=== PATIENT | male | born 1975 | race Caucasian/White ===

== ENCOUNTER 2017-08-14 13:24 | Inpatient (IN) | payer OTHER ==
--- NOTE | 2017-08-14 14:05 | ED ---
General Adult HPI - General Chief complaint: Skin/Abscess/Foreign Body Stated complaint: Hand Pain Time Seen by Provider: 08/14/17 14:05 Source: patient Mode of arrival: ambulatory Limitations: no limitations - History of Present Illness Initial comments: Patient is a 42-year-old right-hand dominant male who presents to the emergency department for evaluation of pain, redness and purulent drainage from his left fifth finger. Patient reports he has a history of boils in the past which is been treated with oral antibiotics. He states that on Saturday the temperature 29th he noticed redness of his left fifth digit, since that time his finger has become progressively more swollen, the wound has opened and is now draining purulent fluid. Patient states that his fingers become enlarged and red, he now cannot straighten the finger due to pain. In addition he has noticed similar boils on his right forearm developed over the past 2-3 days. Patient reports both him and his daughter have a history of recurrent skin infections, he's not sure if they are MRSA, he is not sure what antibiotics he is taking in the past for treatment. 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 He said his tetanus is up-to-date. She denies any other symptoms including fevers, chills, nausea, vomiting, chest pain, shortness of breath. Patient states he has never required hospitalization for his skin infections in the past. - Related Data Home Medications Medication Instructions Recorded Confirmed Ibuprofen [Motrin] 800 mg PO BID PRN 08/14/17 08/14/17 Allergies Allergy/AdvReac Type Severity Reaction Status Date / Time No Known Allergies Allergy Verified 08/14/17 14:17 Review of Systems ROS Statement: Those systems with pertinent positive or pertinent negative responses have been documented in the HPI. ROS Other: All systems not noted in ROS Statement are negative. Constitutional: Denies: fever, chills Respiratory: Denies: dyspnea Cardiovascular: Denies: chest pain, palpitations Endocrine: Denies: fatigue Gastrointestinal: Denies: abdominal pain, nausea, vomiting Genitourinary: Denies: dysuria Musculoskeletal: Denies: back pain Skin: Reports: lesions, change in color Neurological: Denies: headache, weakness Hematological/Lymphatic: Denies: easy bleeding, easy bruising Past Medical History Past Medical History: No Reported History History of Any Multi-Drug Resistant Organisms: MRSA Date of last positivie culture/infection: 07/17/2015 MDRO Source:: ARM Past Surgical History: Adenoidectomy, Ear Surgery, Tonsillectomy Past Psychological History: No Psychological Hx Reported Smoking Status: Current every day smoker Past Alcohol Use History: Occasional Past Drug Use History: None Reported General Exam Limitations: no limitations General appearance: alert, in no apparent distress Head exam: Present: atraumatic, normocephalic Eye exam: Present: normal appearance, PERRL ENT exam: Present: other (Poor dentition) Neck exam: Present: normal inspection Respiratory exam: Present: normal lung sounds bilaterally. Absent: respiratory distress Cardiovascular Exam: Present: regular rate, normal rhythm. Absent: tachycardia , irregular rhythm GI/Abdominal exam: Present: soft. Absent: distended, tenderness Rectal exam: Present: deferred Left Shoulder Exam: Present: normal inspection Upper Arm exam: Present: normal inspection Elbow exam: Present: normal inspection Forearm Wrist exam: Present: normal inspection Hand Wrist exam: Present: tenderness, swelling, ecchymosis, erythema. Absent: normal inspection, full ROM, laceration, deformity, dislocation, amputation Hand L/R Back: 1 - swelling, purulent drainage, decreased ROM, pain with passive extension Neuro motor exam: Present: wrist extension intact Vascular: Present: normal capillary refill. Absent: vascular compromise, Pallo Back exam: Present: normal inspection Neurological exam: Present: alert, oriented X3 Psychiatric exam: Present: normal affect Skin exam: Present: other (as noted in hand exam) Course Vital Signs 08/14/17 13:34 Temperature 98.8 F Pulse Rate 94 Respiratory 20 Rate Blood Pressure 119/78 O2 Sat by Pulse 99 Oximetry - Reevaluation(s) Reevaluation #1: She was updated on plan for admission, now requesting something for pain in his hand. 4 mg of morphine were ordered. 08/14/17 15:06 Medical Decision Making - Medical Decision Making Patient was seen and evaluated vital signs reviewed - tachycardia with a heart rate 94 no other Sirs criteria Patient's history and physical exam are concerning for flexor tenosynovitis, patient has 3 out of 4 [place] signs for flexor tenosynovitis including finger held in flexion, fusiform swelling and pain with passive extension Labs and x-ray were ordered Vancomycin and Rocephin were ordered for antibiotics Orthopedic surgery was consult to evaluate the patient for infection of the hand possibly requiring surgical debridement Orthopedic surgery PA at bedside evaluated the patient, staff the patient with attending on-call who accepts the admission. They agree with workup as ordered and plan for IV Rocephin and vancomycin, they request a consult to Dr. Beltran infectious disease. Consult and admission orders were placed Patient was updated on plan, is agreeable Disposition Clinical Impression: Abscess of hand including fingers Disposition: ADMITTED IP TO THIS [facility] Condition: Good Referrals: None,Stated [Primary Care Provider] - 1-2 days Time of Disposition: 15:09
[2017-08-14] MEDS ORDERED: VANCOMYCIN IV PER PHARMACY 1 EACH MISC MISCELLANE PRN (14:20)
[2017-08-14] MEDS ORDERED: VANCOMYCIN 1,500 MG in SODIUM CHLORIDE 0.9% 250 ML IVPB STA (14:29)
[2017-08-14] MEDS: SODIUM CHLORIDE 0.9% 500 ML IV SCH (14:43)
--- NOTE | 2017-08-14 14:59 | XR ---
Left knee HISTORY: Pain and swelling left fifth digit 3 views of the left hand No comparisons Bone mineralization, joint spaces and alignment are maintained. Soft tissue swelling is noted at the fifth digit of the left hand. No periosteal reaction to suggest osteomyelitis. IMPRESSION: Correlate for cellulitis.
[2017-08-14] MEDS ORDERED: MORPHINE SULFATE 4 MG/ML SYRINGE IV ONE (15:01)
[2017-08-14] MEDS ORDERED: NALOXONE 0.4 MG/ML 1 ML VIAL IV PRN (15:02)
[2017-08-14] MEDS ORDERED: ACETAMINOPHEN TAB 325 MG TAB PO PRN (15:02)
[2017-08-14 15:06] LABS: Basophils % (A) 0 %; CH 31.5; CHCM 34.2; Eosinophils # (A) 0.2 k/uL (0-0.7); Eosinophils % (A) 2 %; HDW 2.52; HGB 15.6 gm/dL (13.0-17.5); Luc # (Auto) 0.21; Luc % (Auto) 2; Lymphocytes # (A) 1.2 k/uL (1.0-4.8); Lymphocytes % (A) 13 %; MCHC 34.6 g/dL (31.0-37.0); MCV 92.4 fL (80.0-100.0); Mean Platelet Volume 7.4; Monocytes # (A) 0.5 k/uL (0-1.0); Monocytes % (A) 6 %; Neutrophils # (A) 6.8 k/uL (1.3-7.7); Neutrophils % (A) 77 %; RBC 4.87 m/uL (4.30-5.90); RDW 12.9 % (11.5-15.5); WBC 8.9 k/uL (3.8-10.6); WBC (Perox) 8.85
[2017-08-14 15:15] LABS: Partial Thromboplastin Time 26.1 sec (22.0-30.0); Prothrombin Time 10.2 sec (9.0-12.0)
[2017-08-14 15:21] LABS: ALT 29 U/L (21-72); AST 21 U/L (17-59); Alkaline Phosphatase 68 U/L (38-126); Anion Gap 9 mmol/L; Blood Urea Nitrogen 6 mg/dL (9-20); Calcium 9.4 mg/dL (8.4-10.2); Carbon Dioxide 25 mmol/L (22-30); Chloride 106 mmol/L (98-107); Glucose 86 mg/dL (74-99); Non-African American GFR(MDRD) >60 (>60 ml/min/1.73 sqM); Potassium 3.9 mmol/L (3.5-5.1); Sodium 140 mmol/L (137-145); Total Bilirubin 0.4 mg/dL (0.2-1.3); Total Protein 6.6 g/dL (6.3-8.2)
[2017-08-14] MEDS: HYDROcodone/APAP 5-325MG 1 EACH TAB PO PRN ×2 (17:03→21:30)
[2017-08-14] MEDS: MORPHINE SULFATE 4 MG/ML SYRINGE IV PRN ×2 (17:04→21:32)
[2017-08-14] MEDS: NICOTINE 21MG/24HR PATCH TRANSDERM SCH (17:25)
[2017-08-14] MEDS ORDERED: HYDROcodone/APAP 7.5-325MG 1 EACH TAB PO PRN (22:16)
[2017-08-14] MEDS: VANCOMYCIN 1,500 MG in SODIUM CHLORIDE 0.9% 250 ML IVPB SCH (23:18)
[2017-08-15] MEDS: HYDROcodone/APAP 7.5-325MG 1 EACH TAB PO PRN ×5 (02:21→21:34)
[2017-08-15] MEDS: MORPHINE SULFATE 4 MG/ML SYRINGE IV PRN ×5 (03:31→23:55)
[2017-08-15] MEDS: VANCOMYCIN 1,500 MG in SODIUM CHLORIDE 0.9% 250 ML IVPB SCH ×2 (07:50→16:18)
--- NOTE | 2017-08-15 07:55 | P.HPOR ---
History of Present Illness H&P Date: 08/14/17 Chief Complaint: Left hand infection This is a 42-year-old male who presented to the emergency department today with infection to the left hand. He states that he has history of "boils" in the past which have been treated through the ER with oral antibiotics. He does not have a primary care physician. 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 He states that he has multiple abscessed areas on his skin at this time. He most recently developed an area of redness and swelling to the dorsum of the left hand which is known draining purulent material. He denies fever or chills at home. He presents emergency department today with severe left hand pain. We have been consulted for orthopedic evaluation. Past Medical History Past Medical History: No Reported History History of Any Multi-Drug Resistant Organisms: MRSA Date of last positivie culture/infection: 07/17/2015 MDRO Source:: ARM Past Surgical History: Adenoidectomy, Ear Surgery, Tonsillectomy Past Psychological History: No Psychological Hx Reported Smoking Status: Current every day smoker Past Alcohol Use History: Occasional Past Drug Use History: None Reported Medications and Allergies Home Medications Medication Instructions Recorded Confirmed Type Ibuprofen [Motrin] 800 mg PO BID PRN 08/14/17 08/14/17 History Allergies Allergy/AdvReac Type Severity Reaction Status Date / Time No Known Allergies Allergy Verified 08/14/17 14:17 Physical Examination This is a 42-year-old male in no acute distress. He is alert and oriented 3. His significant other is present at bedside. Exam of the upper extremities reveals multiple small areas of redness about the arms. There is a pustule to the right forearm with surrounding erythema. There is significant swelling and erythema noted to the dorsum of the left hand about the base of the fifth finger which extends into the webspace between the fourth and fifth fingers. There is purulent drainage noted from the area. He has limited range of motion secondary to pain and swelling. He has normal sensation to the finger. No other areas of redness to the hands noted. The remainder of his musculoskeletal exam is unremarkable. Results - Labs Labs: Abnormal Lab Results - Last 24 Hours (Table) 08/14/17 Range/Units 14:40 BUN 6 L (9-20) mg/dL H & H 08/14/17 Range/Units 14:40 Hgb 15.6 (13.0-17.5) gm/dL Hct 45.0 (39.0-53.0) % Coagulation 08/14/17 Range/Units 14:40 INR 1.0 (<1.2) Result Diagrams: 08/14/17 14:40 08/14/17 14:40 Assessment and Plan (1) Abscess of hand including fingers Status: Acute (2) Abscess and cellulitis Status: Acute Plan: The clinical findings are discussed with the patient. He is admitted for IV antibiotics and infectious disease evaluation. We will have him do warm soaks with soapy water. We'll plan I&D of the hand tomorrow. Dr. Beltran has been consulted for infectious disease evaluation and antibiotic recommendations.
--- NOTE | 2017-08-15 09:00 | P.PN ---
Subjective Progress Note Date: 08/15/17 Principal diagnosis: Abscess left hand. This is a 42-year-old gentleman admitted through the emergency department on 02/2017. He has multiple pustules the about his upper extremities. He has a purulent abscess to the dorsum of his left hand about the base of the fifth finger. We're waiting consult with Dr. Beltran. We are planning or tomorrow for incision and drainage. He is currently on IV antibiotics and is having warm soaks twice a day as well as use the K pad. Objective - Vital Signs Vital signs: Vital Signs Temp 96.7 F L 08/15/17 07:00 Pulse 66 08/15/17 07:00 Resp 20 08/15/17 07:00 BP 115/65 08/15/17 07:00 Pulse Ox 95 08/15/17 07:00 Intake & Output 08/14/17 08/15/17 08/15/17 18:59 06:59 18:59 Weight 77.111 kg Other: Voiding Method Toilet # Voids 2 - Exam This is a 42-year-old male in no acute distress. He is alert and oriented 3. Exam of the left hand reveals that his wound continues to drain. He continues to have redness about the ulnar aspect of the hand and to the fourth and fifth fingers. He has limited range of motion of the fifth finger secondary to pain. Neurovascular status the upper extremity is intact. - Labs CBC & Chem 7: 08/14/17 14:40 08/14/17 14:40 Labs: Abnormal Lab Results - Last 24 Hours (Table) 08/14/17 Range/Units 14:40 BUN 6 L (9-20) mg/dL Assessment and Plan (1) Abscess of hand including fingers Status: Acute (2) Abscess and cellulitis Status: Acute Plan: The clinical findings are discussed with the patient. He is admitted for IV antibiotics and infectious disease evaluation. We will have him do warm soaks with soapy water. We'll plan I&D of the hand tomorrow. Dr. Beltran has been consulted for infectious disease evaluation and antibiotic recommendations.
[2017-08-15] MEDS: KETOROLAC 30 MG/ML 1 ML VIAL IVP SCH ×2 (13:35→18:20)
[2017-08-15] MEDS: MULTIVITAMINS, THERA 1 EACH TAB PO SCH (13:37)
[2017-08-15] MEDS: LACTATED RINGERS 1,000 ML IV SCH (16:17)
[2017-08-15] MEDS: ceFAZolin 2 GM in SODIUM CHLORIDE 0.9% 100 ML IVPB SCH ×2 (18:20→22:58)
[2017-08-15] MEDS: NICOTINE 21MG/24HR PATCH TRANSDERM SCH (18:25)
--- NOTE | 2017-08-15 21:20 | P.CONS ---
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 Who is a difficulty with boils on his skin in the past. She developed a boil on his left hand. Despite some local care it did not improve. He also noticed one in his right arm there is also been giving him some swelling drainage and pain. The swelling and pain to the left hand became unbearable and he presented to the emergency center and has been admitted. He has been seen by orthopedic surgery and his plans for an incision and drainage of the abscess on the left hand. Infectious diseases consultation for antibiotic therapy. This pleasant 48-year-old gentleman with history of multiple lesions on his skin over time. 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 He believes a low-grade fever but no severe chills or rigors. He's had no recent hospitalizations or interventions. Review of Systems 42-year-old male who is in significant discomfort to his left hand. HEENT:Denies headache or acute visual change. Denies sinus or mouth discomforts. Denies neck stiffness or pain. Denies significant oral cavity pain. Denies difficulty on swallowing. Lungs: Denies significant shortness of breath, cough, sputum production, or hemoptysis. Cardiovascular: Denies significant shortness of breath, chest pain, chest wall pain, orthopnea, dyspnea on exertion, syncope Gastrointestinal:Denies nausea, vomiting, diarrhea, constipation, hematemesis, melena, hematochezia. No no significant change of bowel habit noticed. Musculoskeletal: denies significant myalgias or arthralgias. No new joint swelling. Denies new back pain. As per the HPI left hand Skin: As per the HPI Neuro: Denies headache or visual change. Denies any new onset weakness or difficulty with ambulation. Denies falls or seizures. Psychiatric:Denies anxiety or depression. Endocrine: Denies significant fatigue, denies significant weight loss or weight gain. Past Medical History Past Medical History: No Reported History History of Any Multi-Drug Resistant Organisms: MRSA Year Discovered:: 07/17/2015 MDRO Source:: ARM Past Surgical History: Adenoidectomy, Ear Surgery, Tonsillectomy Past Psychological History: No Psychological Hx Reported Additional Psychological History / Comment(s): but has a five-year relationship. 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 No international travel. 2 dogs and 2 cats at home. Positive tobacco use. History of alcoholism but not current. Denies other recreational drug use Smoking Status: Current every day smoker Past Alcohol Use History: Occasional Past Drug Use History: None Reported Medications and Allergies Home Medications and Allergies Comment(s): Current Medications Acetaminophen (Tylenol Tab) 650 mg PO Q6HR PRN PRN Reason: Mild Pain or Fever > 100.5 Hydrocodone Bitart/Acetaminophen ([place] 7.5-325) 2 each PO Q4H PRN PRN Reason: Moderate Pain Last Admin: 08/15/17 16:23 Dose: 2 each Hydrocodone Bitart/Acetaminophen ([place] 7.5-325) 1 each PO Q4H PRN PRN Reason: Mild Pain Vancomycin HCl 1,500 mg/ (Sodium Chloride) 250 mls @ 125 mls/hr IVPB Q8HR [place] Last Admin: 08/15/17 16:18 Dose: 125 mls/hr Cefazolin Sodium 2 gm/ Sodium (Chloride) 100 mls @ 100 mls/hr IVPB Q8HR [place] Last Admin: 08/15/17 18:20 Dose: 100 mls/hr Lactated Ringer's (Lactated Ringers) 1,000 mls @ 20 mls/hr IV .Q24H [place] Last Admin: 08/15/17 16:17 Dose: Not Given Ketorolac Tromethamine (Toradol) 30 mg IVP Q6HR [place] Stop: 08/19/17 12:04 Last Admin: 08/15/17 18:20 Dose: 30 mg Miscellaneous Information (Vancomycin Trough Due) 0 each MISCELLANE DIRECTED ONE Stop: 08/16/17 07:01 Morphine Sulfate (Morphine Sulfate (Inj)) 4 mg IV Q4HR PRN PRN Reason: Severe Pain Last Admin: 08/15/17 18:21 Dose: 4 mg Multivitamins (Theragran) 1 each PO DAILY@1200 [place] Last Admin: 08/15/17 13:37 Dose: 1 each Naloxone HCl (Narcan) 0.2 mg IV Q2M PRN PRN Reason: Opioid Reversal Nicotine (Habitrol 21mg/24hr Patch) 1 patch TRANSDERM Q24H [place] Last Admin: 08/15/17 18:25 Dose: 1 patch Home Medications Medication Instructions Recorded Confirmed Type Ibuprofen [Motrin] 800 mg PO BID PRN 08/14/17 08/14/17 History Allergies Allergy/AdvReac Type Severity Reaction Status Date / Time No Known Allergies Allergy Verified 08/14/17 14:17 Physical Exam Vitals: Vital Signs Temp Pulse Resp BP Pulse Ox 08/15/17 15:00 97.1 F L 96 16 120/74 95 08/15/17 07:00 96.7 F L 66 20 115/65 95 08/14/17 23:00 99.4 F 72 19 112/64 96 Intake and Output 08/15/17 08/15/17 08/15/17 06:59 14:59 22:59 Other: # Voids 2 2 # Bowel Movements 1 Pleasant 42-year-old male who is uncomfortable HEENT: Anicteric conjunctiva are pink and moist nasal mucosa grossly intact without significant lesions, there is no thrush. Dentition is poor for age Neck: The neck is supple without significant lymphadenopathy or thyromegaly. Lungs: Symmetrical air entry is noted, expiratory wheezes are scattered but no bronchial sounds are noted. No dullness or egophony. Heart: Regular rate and rhythm with an audible S1-S2, no S3 no S4. There is no significant murmur click or rub, PMI was nondisplaced. Abdomen: Positive bowel sounds soft and nontender without palpable masses or organomegaly. There was no guarding or rebound. Extremities: The right upper extremity shows evidence on the forearm of a small 2 x 2 area of a pustule that is drained with some surrounding erythema and induration. It is mildly tender. The left hand reveals evidence of the extensive abscess at the base of the fifth finger. There is grossly purulent material is easily expressible. It is very tender to touch and motion. There is surrounding erythema. There is erythema onto the hand but does not track out of the forearm. There is no epitrochlear or axillary lymphadenopathy. No other abnormal lymph nodes are noted The lower extremities are free from significant edema. The peripheral pulses were 2+ and symmetric. Neuro: Awake alert oriented to person place and time. There are no acute new gross focal sensory motor deficits. Results CBC & Chem 7: 08/14/17 14:40 08/14/17 14:40 Labs: Microbiology - Last 24 Hours (Table) 08/14/17 14:40 Blood Culture - Preliminary Blood No Growth after 24 hours Laboratory Results WBC 8.9 k/uL (3.8-10.6) 08/14/17 14:40 RBC 4.87 m/uL (4.30-5.90) 08/14/17 14:40 Hgb 15.6 gm/dL (13.0-17.5) 08/14/17 14:40 Hct 45.0 % (39.0-53.0) 08/14/17 14:40 MCV 92.4 fL (80.0-100.0) 08/14/17 14:40 MCH 32.0 pg (25.0-35.0) 08/14/17 14:40 MCHC 34.6 g/dL (31.0-37.0) 08/14/17 14:40 RDW 12.9 % (11.5-15.5) 08/14/17 14:40 Plt Count 208 k/uL (150-450) 08/14/17 14:40 Neutrophils % 77 % 08/14/17 14:40 Lymphocytes % 13 % 08/14/17 14:40 Monocytes % 6 % 08/14/17 14:40 Eosinophils % 2 % 08/14/17 14:40 Basophils % 0 % 08/14/17 14:40 Neutrophils # 6.8 k/uL (1.3-7.7) 08/14/17 14:40 Lymphocytes # 1.2 k/uL (1.0-4.8) 08/14/17 14:40 Monocytes # 0.5 k/uL (0-1.0) 08/14/17 14:40 Eosinophils # 0.2 k/uL (0-0.7) 08/14/17 14:40 Basophils # 0.0 k/uL (0-0.2) 08/14/17 14:40 PT 10.2 sec (9.0-12.0) 08/14/17 14:40 INR 1.0 (<1.2) 08/14/17 14:40 APTT 26.1 sec (22.0-30.0) 08/14/17 14:40 Sodium 140 mmol/L (137-145) 08/14/17 14:40 Potassium 3.9 mmol/L (3.5-5.1) 08/14/17 14:40 Chloride 106 mmol/L (98-107) 08/14/17 14:40 Carbon Dioxide 25 mmol/L (22-30) 08/14/17 14:40 Anion Gap 9 mmol/L 08/14/17 14:40 BUN 6 mg/dL (9-20) L 08/14/17 14:40 Creatinine 0.75 mg/dL (0.66-1.25) 08/14/17 14:40 Est GFR (MDRD) Af Amer >60 (>60 ml/min/1.73 sqM) 08/14/17 14:40 Est GFR (MDRD) Non-Af >60 (>60 ml/min/1.73 sqM) 08/14/17 14:40 Glucose 86 mg/dL (74-99) 08/14/17 14:40 Plasma Lactic Acid Alexander 1.1 mmol/L (0.7-2.0) 08/14/17 14:40 Calcium 9.4 mg/dL (8.4-10.2) 08/14/17 14:40 Total Bilirubin 0.4 mg/dL (0.2-1.3) 08/14/17 14:40 AST 21 U/L (17-59) 08/14/17 14:40 ALT 29 U/L (21-72) 08/14/17 14:40 Alkaline Phosphatase 68 U/L (38-126) 08/14/17 14:40 Total Protein 6.6 g/dL (6.3-8.2) 08/14/17 14:40 Albumin 3.8 g/dL (3.5-5.0) 08/14/17 14:40 Microbiology 08/14/17 14:40 Blood Blood Culture - Preliminary No Growth after 24 hours Assessment and Plan (1) Abscess of hand including fingers Narrative/Plan: 42-year-old male presents to hospital with worsening pain to his left hand. The presentation evidence of significant abscess of the fifth finger left hand. Has been seen by orthopedics nurse plan for incision and drainage soon. Pain control seems to be adequate at times. Manipulation of the hand cause severe pain. Dressing with opticel is applied and elevation of the hand is suggested. Opticell also placed of the abscess on of the right arm. Antimicrobial therapy with vancomycin is initiated cefazolin is also added until we have further culture results but does have a known history of MRSA in the past. Information about MRSA infection is given. We discussed several maneuvers once he is home to help prevent further abscess, this includes maneuvers such as a bleach bath she's not done up till now. Multivitamin with zinc is added to help his nutritional status. His albumin level that was good. Surgical findings we'll determine the need for outpatient intravenous antibiotic therapy especially if there is tendosynovitis which is suspected at this time. Status: Acute (2) MRSA infection Status: Acute (3) Smoker Status: Acute
[2017-08-16] MEDS: KETOROLAC 30 MG/ML 1 ML VIAL IVP SCH ×5 (00:32→23:22)
[2017-08-16] MEDS: VANCOMYCIN 1,500 MG in SODIUM CHLORIDE 0.9% 250 ML IVPB SCH ×3 (00:32→17:18)
[2017-08-16] MEDS: HYDROcodone/APAP 7.5-325MG 1 EACH TAB PO PRN ×4 (06:27→23:29)
[2017-08-16] MEDS: MORPHINE SULFATE 4 MG/ML SYRINGE IV PRN ×3 (06:54→20:28)
[2017-08-16] MEDS ORDERED: VANCOMYCIN TROUGH DUE 1 EACH MISC MISCELLANE ONE (07:00)
[2017-08-16] MEDS: ceFAZolin 2 GM in SODIUM CHLORIDE 0.9% 100 ML IVPB SCH ×3 (07:48→23:22)
[2017-08-16] MEDS ORDERED: IV FLUID CONTINUATION 1,000 ML IV ONE (09:00)
[2017-08-16] MEDS ORDERED: DEXAMETHASONE SOD PHOSPHATE 10 MG/ML 1 ML VIAL IV ONE (09:16)
[2017-08-16] MEDS ORDERED: ONDANSETRON 4 MG/2 ML VIAL IVP ONE ×2 (09:16→11:21)
[2017-08-16] MEDS ORDERED: fentaNYL (PF) 50 MCG/ML 2 ML AMP ONE (09:25)
[2017-08-16] MEDS ORDERED: MEPERIDINE 50 MG/ML SYRINGE ONE (09:25)
[2017-08-16] MEDS ORDERED: MIDAZOLAM 2 MG/2 ML VIAL ONE (09:25)
[2017-08-16] MEDS ORDERED: PROPOFOL 10 MG/ML 20 ML VIAL IV ONE (09:25)
[2017-08-16] MEDS ORDERED: LIDOCAINE 1% INJ 10MG/ML (20 ML MDV) ONE (09:25)
[2017-08-16] MEDS ORDERED: ePHEDrine SULFATE/0.9% NACL/PF 50 MG/5 ML SYRINGE IV ONE (09:25)
--- NOTE | 2017-08-16 09:43 | P.PN ---
Progress Note - Text Progress Note Date: 08/16/17 Mr. Sapp is presenting to the operating room this morning for debridement of his left hand abscess. He also wishes to bring to our attention the presence of 2 other superficial abscesses on his contralateral forearm, one proximal and one distal. These appear to be superficial abscesses with a slightly raised appearance but no evidence of significant fluctuance. The proximal 1 is on the medial aspect of the proximal forearm and measures approximately 3 cm with respect to the amount of redness around that area. There is no definite fluid collection palpable and there is an opening there which the patient states is freely draining pus. Currently there is no expressible drainage. The other one on the distal aspect of the volar surface of the forearm measures approximately 2.5 cm in size and has a more focal area approximately 5 mm in size which appears to be a quantity of pus coming to ahead. Again there is no evidence of definite fluctuance in the area and no expressible drainage. He is acutely tender on both of these areas however. I have added to the consent form possible irrigation and debridement of these superficial abscesses on his right forearm as well and he wishes to proceed with that. I remained of the consent form to reflect these changes, and he has re-signed the consent form. We went over pertinent risks and potential, locations as being similar to the left hand debridement procedure.
[2017-08-16] MEDS ORDERED: LACTATED RINGERS 1,000 ML IV ONE (10:09)
[2017-08-16] MEDS ORDERED: HYDROmorphone 1 MG/ML 1 ML SYRINGE IVP ONE ×4 (11:16→11:36)
[2017-08-16] MEDS ORDERED: KETOROLAC 30 MG/ML 1 ML VIAL IVP ONE (11:30)
--- NOTE | 2017-08-16 12:24 | P.OP ---
Date of Procedure: 08/16/17 Procedure(s) Performed: left hand I&D of dorsal abcess of 5th MCP area right forearm superficial abcess I&D x2 (proximal and distal volar surface) all wounds packed with iodoform wet-to-dry PREOPERATIVE DIAGNOSES: 1. Left hand dorsal fifth MCP area superficial abscess 2. Right forearm superficial cellulitis/superficial abscess 2 (1 proximal, 1 distal) POSTOPERATIVE DIAGNOSES: 1. Left hand dorsal fifth MCP area superficial abscess 2. Right forearm superficial cellulitis/superficial abscess 2 (1 proximal, 1 distal) PROCEDURES PERFORMED: 1. Left hand fifth MCP area abscess incision and drainage 2. Right forearm superficial cellulitis/superficial abscess incision and drainage 2 3. Packing of wounds with moistened iodoform gauze ANESTHESIA: Gen. POINT OF CARE SPECIALIST: None COMPLICATIONS: None ESTIMATED BLOOD LOSS: Less than 20 mL. DISPOSITION: To post-anesthesia care unit INDICATIONS: Zach is a 42-year-old male with a history of abscesses involving the left hand and right forearm. He presents to the operating room for incision and drainage. Consent has been obtained after discussion of the risks of incision and drainage of this abscess as being inclusive of, but not limited to: Bleeding, further infection, scarring, discomfort, blood vessel and/or nerve damage, compartment syndrome, failure to relieve symptoms, persistence or recurrence and/or worsening of symptoms or problems, need for further surgery, blood clot, pulmonary embolism, , anesthesia risks, and other risks. PROCEDURE: After appropriate consent was obtained, the patient was taken to the operating room placed in the supine position. Anesthesia was initiated, and after confirmation of adequate anesthesia, the patient was carefully positioned. Care was taken to make sure that all pressure points were adequately padded. Prepping and draping were completed in the usual aseptic fashion using ChloraPrep. Timeout was called, confirming patient identity, side , and procedure. Incision approximately 1.5 inches in size was created along the abscess, which was located on the dorsal aspect of the fifth MCP area of the left hand. Incision was carried down just through skin and into subcu tissues where was noted that there was gross pus. The gross pus was removed by extending the incision and gently spreading down to the abscess cavity. The abscess cavity was probed with manual palpation until all areas of the abscess cavity were interrogated. Cultures were taken. There did not appear to be any extension of the abscess cavity into the joint. Soft tissue tension visibly and palpably improved after drainage of the abscess. Pulsatile lavage was used, delivering one L of saline within the abscess cavity. During this time, small amount of Hibiclens solution was also applied to the wound surface, allowed to soak into the tissues for 1 minute, and then rinsed off using the pulsatile lavage. The wound was then gently packed with moistened quarter-inch iodoform gauze followed by a dry dressing. In similar fashion, the right forearm abscesses were similarly treated with smaller incisions, approximately 1 cm in size. In these areas however, no gross pus was noted. Spreading with a blunt instrument down to muscular fascia was performed. There did not appear to be any involvement of the muscular fascia. Irrigation was performed with normal saline. Both these areas were packed with a very small quantity of moistened iodoform gauze. Hemostasis was obtained during the case using electrocautery and pressure. Sterile dressing was then applied with Amarjit. Patient tolerated the procedure well and taken to recovery room in stable condition. Sponge counts were correct.
[2017-08-16] MEDS: MULTIVITAMINS, THERA 1 EACH TAB PO SCH (12:25)
[2017-08-16] MEDS: NICOTINE 21MG/24HR PATCH TRANSDERM SCH (12:28)
[2017-08-16] MEDS: LACTATED RINGERS 1,000 ML IV SCH (14:53)
--- NOTE | 2017-08-16 23:14 | P.PN ---
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 Who is a difficulty with boils on his skin in the past. She developed a boil on his left hand. Despite some local care it did not improve. He also noticed one in his right arm there is also been giving him some swelling drainage and pain. The swelling and pain to the left hand became unbearable and he presented to the emergency center and has been admitted. He has been seen by orthopedic surgery and his plans for an incision and drainage of the abscess on the left hand. Infectious diseases consultation for antibiotic therapy. This pleasant 48-year-old gentleman with history of multiple lesions on his skin over time. 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 He believes a low-grade fever but no severe chills or rigors. He's had no recent hospitalizations or interventions. The patient has not been taking the operating room when incision and drainages occurred to his left hand and right forearm. Surgical notes are reviewed. Other than significant pain the patient relates that he is stable today. Objective - Vital Signs Vital signs: Vital Signs Temp 97.4 F L 08/16/17 23:00 Pulse 62 08/16/17 23:00 Resp 18 08/16/17 23:00 BP 114/78 08/16/17 23:00 Pulse Ox 94 L 08/16/17 23:00 Intake & Output 08/16/17 08/16/17 08/17/17 06:59 18:59 06:59 Intake Total 525 600 Output Total 20 Balance 505 600 Intake: IV 525 Oral 600 Output: Estimated Blood Loss 20 Other: Voiding Method Toilet Toilet # Voids 1 2 2 - Exam Pleasant 42-year-old male who is uncomfortable HEENT: Anicteric conjunctiva are pink and moist nasal mucosa grossly intact without significant lesions, there is no thrush. Dentition is poor for age Neck: The neck is supple without significant lymphadenopathy or thyromegaly. Lungs: Symmetrical air entry is noted, expiratory wheezes are scattered but no bronchial sounds are noted. No dullness or egophony. Heart: Regular rate and rhythm with an audible S1-S2, no S3 no S4. There is no significant murmur click or rub, PMI was nondisplaced. Abdomen: Positive bowel sounds soft and nontender without palpable masses or organomegaly. There was no guarding or rebound. Extremities: The left hand and right forearm have the recent postoperative dressings in place not removed. There is surrounding erythema. There is erythema onto the hand but does not track out of the forearm. There is no epitrochlear or axillary lymphadenopathy. No other abnormal lymph nodes are noted The lower extremities are free from significant edema. The peripheral pulses were 2+ and symmetric. Neuro: Awake alert oriented to person place and time. There are no acute new gross focal sensory motor deficits. - Labs CBC & Chem 7: 08/14/17 14:40 08/14/17 14:40 Labs: Microbiology - Last 24 Hours (Table) 08/16/17 10:00 Wound Culture - Preliminary Hand - Left 08/16/17 10:00 Anaerobic Culture - Preliminary Hand - Left 08/14/17 14:40 Blood Culture - Preliminary Blood No Growth after 48 hours 08/16/17 10:00 Anaerobic Culture - Preliminary Hand - Left 08/16/17 10:00 Wound Culture - Preliminary Hand - Left Laboratory Results WBC 8.9 k/uL (3.8-10.6) 08/14/17 14:40 RBC 4.87 m/uL (4.30-5.90) 08/14/17 14:40 Hgb 15.6 gm/dL (13.0-17.5) 08/14/17 14:40 Hct 45.0 % (39.0-53.0) 08/14/17 14:40 MCV 92.4 fL (80.0-100.0) 08/14/17 14:40 MCH 32.0 pg (25.0-35.0) 08/14/17 14:40 MCHC 34.6 g/dL (31.0-37.0) 08/14/17 14:40 RDW 12.9 % (11.5-15.5) 08/14/17 14:40 Plt Count 208 k/uL (150-450) 08/14/17 14:40 Neutrophils % 77 % 08/14/17 14:40 Lymphocytes % 13 % 08/14/17 14:40 Monocytes % 6 % 08/14/17 14:40 Eosinophils % 2 % 08/14/17 14:40 Basophils % 0 % 08/14/17 14:40 Neutrophils # 6.8 k/uL (1.3-7.7) 08/14/17 14:40 Lymphocytes # 1.2 k/uL (1.0-4.8) 08/14/17 14:40 Monocytes # 0.5 k/uL (0-1.0) 08/14/17 14:40 Eosinophils # 0.2 k/uL (0-0.7) 08/14/17 14:40 Basophils # 0.0 k/uL (0-0.2) 08/14/17 14:40 PT 10.2 sec (9.0-12.0) 08/14/17 14:40 INR 1.0 (<1.2) 08/14/17 14:40 APTT 26.1 sec (22.0-30.0) 08/14/17 14:40 Sodium 140 mmol/L (137-145) 08/14/17 14:40 Potassium 3.9 mmol/L (3.5-5.1) 08/14/17 14:40 Chloride 106 mmol/L (98-107) 08/14/17 14:40 Carbon Dioxide 25 mmol/L (22-30) 08/14/17 14:40 Anion Gap 9 mmol/L 08/14/17 14:40 BUN 6 mg/dL (9-20) L 08/14/17 14:40 Creatinine 0.75 mg/dL (0.66-1.25) 08/14/17 14:40 Est GFR (MDRD) Af Amer >60 (>60 ml/min/1.73 sqM) 08/14/17 14:40 Est GFR (MDRD) Non-Af >60 (>60 ml/min/1.73 sqM) 08/14/17 14:40 Glucose 86 mg/dL (74-99) 08/14/17 14:40 Plasma Lactic Acid Alexander 1.1 mmol/L (0.7-2.0) 08/14/17 14:40 Calcium 9.4 mg/dL (8.4-10.2) 08/14/17 14:40 Total Bilirubin 0.4 mg/dL (0.2-1.3) 08/14/17 14:40 AST 21 U/L (17-59) 08/14/17 14:40 ALT 29 U/L (21-72) 08/14/17 14:40 Alkaline Phosphatase 68 U/L (38-126) 08/14/17 14:40 Total Protein 6.6 g/dL (6.3-8.2) 08/14/17 14:40 Albumin 3.8 g/dL (3.5-5.0) 08/14/17 14:40 Vancomycin Trough 16.4 ug/mL 08/16/17 07:41 Microbiology 08/16/17 10:00 Hand - Left Wound Culture - Preliminary 08/16/17 10:00 Hand - Left Anaerobic Culture - Preliminary 08/14/17 14:40 Blood Blood Culture - Preliminary No Growth after 48 hours 08/16/17 10:00 Hand - Left Anaerobic Culture - Preliminary 08/16/17 10:00 Hand - Left Wound Culture - Preliminary Assessment and Plan (1) Abscess of hand including fingers Narrative/Plan: 42-year-old male presents to hospital with worsening pain to his left hand. The presentation evidence of significant abscess of the fifth finger left hand. Has been seen by orthopedics nurse plan for incision and drainage soon. Pain control seems to be adequate at times. Manipulation of the hand cause severe pain. Dressing with opticel is applied and elevation of the hand is suggested. Opticell also placed of the abscess on of the right arm. Antimicrobial therapy with vancomycin is initiated cefazolin is also added until we have further culture results but does have a known history of MRSA in the past. Information about MRSA infection is given. We discussed several maneuvers once he is home to help prevent further abscess, this includes maneuvers such as a bleach bath she's not done up till now. Multivitamin with zinc is added to help his nutritional status. His albumin level that was good. Patient's been taken the operating room and the abscesses have been incised and drained. On significant pain at the site he's improving. Surgical notes are reviewed without evidence of penetration into the tendon or joint structures at this time. Consequently as he improves will hopefully be able to transition him to oral antimicrobial therapy for his treatment at home. Patient is receiving multiple modalities for pain control with only modest control. Suggest elevation and cold packs. He is anxious for discharge to home. He has greater than a pack per day smoker and a patch is in place but is still anxious. Status: Acute (2) MRSA infection Status: Acute (3) Smoker Status: Acute
[2017-08-17] MEDS: MORPHINE SULFATE 4 MG/ML SYRINGE IV PRN ×2 (00:31→04:13)
[2017-08-17] MEDS: VANCOMYCIN 1,500 MG in SODIUM CHLORIDE 0.9% 250 ML IVPB SCH ×3 (01:54→17:49)
[2017-08-17] MEDS: HYDROcodone/APAP 7.5-325MG 1 EACH TAB PO PRN ×5 (03:21→20:30)
[2017-08-17] MEDS: KETOROLAC 30 MG/ML 1 ML VIAL IVP SCH ×4 (07:17→23:12)
[2017-08-17] MEDS: ceFAZolin 2 GM in SODIUM CHLORIDE 0.9% 100 ML IVPB SCH ×3 (07:24→23:12)
[2017-08-17 08:28] LABS: Non-African American GFR(MDRD) >60 (>60 ml/min/1.73 sqM)
[2017-08-17] MEDS: MORPHINE SULFATE 2 MG/ML SYRINGE IV PRN ×4 (08:51→21:14)
[2017-08-17] MEDS: MULTIVITAMINS, THERA 1 EACH TAB PO SCH (11:36)
--- NOTE | 2017-08-17 12:09 | P.PN ---
Subjective Progress Note Date: 08/17/17 Principal diagnosis: Abscess left hand. This is a 42-year-old gentleman admitted through the emergency department on 02/2017. He has multiple pustules the about his upper extremities. He has a purulent abscess to the dorsum of his left hand about the base of the fifth finger. He is status post surgical I&D of the left hand and right forearm. No abscess was found in the forearm wounds. The patient reports moderate pain to the left hand. No other new concerns or complaints today. Objective - Vital Signs Vital signs: Vital Signs Temp 97.0 F L 08/17/17 07:00 Pulse 74 08/17/17 07:00 Resp 20 08/17/17 07:00 BP 124/68 08/17/17 07:00 Pulse Ox 96 08/17/17 07:00 Intake & Output 08/16/17 08/17/17 08/17/17 18:59 06:59 18:59 Intake Total 525 1500 400 Output Total 20 Balance 505 1500 400 Intake: IV 525 Oral 1500 400 Output: Estimated Blood Loss 20 Other: Voiding Method Toilet # Voids 2 3 # Bowel Movements 0 - Exam This is a 42-year-old male in no acute distress. He is alert and oriented 3. Postoperative dressing in place. There is small amount of drainage noted on the dressing. He has fairly good finger motion without difficulty. Dressings to the right forearm are intact. Neurovascular status the upper extremities is intact. - Labs CBC & Chem 7: 08/14/17 14:40 08/17/17 07:49 Labs: Microbiology - Last 24 Hours (Table) 08/16/17 10:00 Gram Stain - Preliminary Hand - Left Wound Culture - Preliminary Presumptive Staph aureus 08/16/17 10:00 Gram Stain - Preliminary Hand - Left Wound Culture - Preliminary 08/16/17 10:00 Anaerobic Culture - Preliminary Hand - Left 08/14/17 14:40 Blood Culture - Preliminary Blood No Growth after 48 hours 08/16/17 10:00 Anaerobic Culture - Preliminary Hand - Left Assessment and Plan (1) Abscess of hand including fingers Status: Acute (2) Abscess and cellulitis Status: Acute Plan: The clinical findings are discussed with the patient. Continue IV antibiotics. Dr. Beltran is managing his wound care and packing changes. We will continue to follow.
[2017-08-17] MEDS: LACTATED RINGERS 1,000 ML IV SCH (15:34)
[2017-08-17] MEDS ORDERED: BISACODYL 5 MG TABLET.DR PO STA (15:41)
[2017-08-17] MEDS ORDERED: POLYETHYLENE GLYCOL 3350 17 GM POWD.PACK PO STA (15:41)
[2017-08-17] MEDS: NICOTINE 21MG/24HR PATCH TRANSDERM SCH (17:50)
[2017-08-18] MEDS: HYDROcodone/APAP 7.5-325MG 1 EACH TAB PO PRN ×2 (01:39→05:50)
[2017-08-18] MEDS: MORPHINE SULFATE 2 MG/ML SYRINGE IV PRN ×3 (01:40→23:54)
[2017-08-18] MEDS: VANCOMYCIN 1,500 MG in SODIUM CHLORIDE 0.9% 250 ML IVPB SCH ×3 (01:40→18:08)
[2017-08-18] MEDS: KETOROLAC 30 MG/ML 1 ML VIAL IVP SCH ×3 (05:49→18:08)
[2017-08-18] MEDS: ceFAZolin 2 GM in SODIUM CHLORIDE 0.9% 100 ML IVPB SCH (07:22)
[2017-08-18] MEDS: POLYETHYLENE GLYCOL 3350 17 GM POWD.PACK PO SCH (08:22)
--- NOTE | 2017-08-18 09:16 | P.PN ---
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 Who is a difficulty with boils on his skin in the past. She developed a boil on his left hand. Despite some local care it did not improve. He also noticed one in his right arm there is also been giving him some swelling drainage and pain. The swelling and pain to the left hand became unbearable and he presented to the emergency center and has been admitted. He has been seen by orthopedic surgery and his plans for an incision and drainage of the abscess on the left hand. Infectious diseases consultation for antibiotic therapy. This pleasant 48-year-old gentleman with history of multiple lesions on his skin over time. 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 He believes a low-grade fever but no severe chills or rigors. He's had no recent hospitalizations or interventions. The patient has not been taking the operating room when incision and drainages occurred to his left hand and right forearm. Surgical notes are reviewed. Other than significant pain the patient relates that he is stable today. In general he is feeling somewhat better but is still having severe left hand pain Objective - Vital Signs Vital signs: Temp is 97.8 Blood pressure is 140/88 Heart rate is 71 Rest rate is 18 Pulse ox 97% room air Vital Signs - Exam Pleasant 42-year-old male who is uncomfortable HEENT: Anicteric conjunctiva are pink and moist nasal mucosa grossly intact without significant lesions, there is no thrush. Dentition is poor for age Neck: The neck is supple without significant lymphadenopathy or thyromegaly. Lungs: Symmetrical air entry is noted, expiratory wheezes are scattered but no bronchial sounds are noted. No dullness or egophony. Heart: Regular rate and rhythm with an audible S1-S2, no S3 no S4. There is no significant murmur click or rub, PMI was nondisplaced. Abdomen: Positive bowel sounds soft and nontender without palpable masses or organomegaly. There was no guarding or rebound. Extremities: The left hand and right forearm dressings are removed, the areas are irrigated with saline. All necrotic material is removed at the time of surgery. There are still intense pain in these areas with manipulation and repacking. There is improvement to the surrounding erythema. There is erythema onto the hand but does not track out of the forearm. There is no epitrochlear or axillary lymphadenopathy. No other abnormal lymph nodes are noted The lower extremities are free from significant edema. The peripheral pulses were 2+ and symmetric. Neuro: Awake alert oriented to person place and time. There are no acute new gross focal sensory motor deficits. - Labs CBC & Chem 7: 08/14/17 14:40 08/17/17 07:49 Labs: Microbiology - Last 24 Hours (Table) 08/14/17 14:40 Blood Culture - Preliminary Blood No Growth after 72 hours 08/16/17 10:00 Gram Stain - Preliminary Hand - Left Wound Culture - Preliminary Presumptive Staph aureus Laboratory Results WBC 8.9 k/uL (3.8-10.6) 08/14/17 14:40 RBC 4.87 m/uL (4.30-5.90) 08/14/17 14:40 Hgb 15.6 gm/dL (13.0-17.5) 08/14/17 14:40 Hct 45.0 % (39.0-53.0) 08/14/17 14:40 MCV 92.4 fL (80.0-100.0) 08/14/17 14:40 MCH 32.0 pg (25.0-35.0) 08/14/17 14:40 MCHC 34.6 g/dL (31.0-37.0) 08/14/17 14:40 RDW 12.9 % (11.5-15.5) 08/14/17 14:40 Plt Count 208 k/uL (150-450) 08/14/17 14:40 Neutrophils % 77 % 08/14/17 14:40 Lymphocytes % 13 % 08/14/17 14:40 Monocytes % 6 % 08/14/17 14:40 Eosinophils % 2 % 08/14/17 14:40 Basophils % 0 % 08/14/17 14:40 Neutrophils # 6.8 k/uL (1.3-7.7) 08/14/17 14:40 Lymphocytes # 1.2 k/uL (1.0-4.8) 08/14/17 14:40 Monocytes # 0.5 k/uL (0-1.0) 08/14/17 14:40 Eosinophils # 0.2 k/uL (0-0.7) 08/14/17 14:40 Basophils # 0.0 k/uL (0-0.2) 08/14/17 14:40 PT 10.2 sec (9.0-12.0) 08/14/17 14:40 INR 1.0 (<1.2) 08/14/17 14:40 APTT 26.1 sec (22.0-30.0) 08/14/17 14:40 Sodium 140 mmol/L (137-145) 08/14/17 14:40 Potassium 3.9 mmol/L (3.5-5.1) 08/14/17 14:40 Chloride 106 mmol/L (98-107) 08/14/17 14:40 Carbon Dioxide 25 mmol/L (22-30) 08/14/17 14:40 Anion Gap 9 mmol/L 08/14/17 14:40 BUN 6 mg/dL (9-20) L 08/14/17 14:40 Creatinine 0.73 mg/dL (0.66-1.25) 08/17/17 07:49 Est GFR (MDRD) Af Amer >60 (>60 ml/min/1.73 sqM) 08/17/17 07:49 Est GFR (MDRD) Non-Af >60 (>60 ml/min/1.73 sqM) 08/17/17 07:49 Glucose 86 mg/dL (74-99) 08/14/17 14:40 Plasma Lactic Acid Alexander 1.1 mmol/L (0.7-2.0) 08/17/17 23:46 Calcium 9.4 mg/dL (8.4-10.2) 08/14/17 14:40 Total Bilirubin 0.4 mg/dL (0.2-1.3) 08/14/17 14:40 AST 21 U/L (17-59) 08/14/17 14:40 ALT 29 U/L (21-72) 08/14/17 14:40 Alkaline Phosphatase 68 U/L (38-126) 08/14/17 14:40 Total Protein 6.6 g/dL (6.3-8.2) 08/14/17 14:40 Albumin 3.8 g/dL (3.5-5.0) 08/14/17 14:40 Vancomycin Trough 16.4 ug/mL 08/16/17 07:41 Microbiology 08/14/17 14:40 Blood Blood Culture - Preliminary No Growth after 72 hours 08/16/17 10:00 Hand - Left Gram Stain - Preliminary 08/16/17 10:00 Hand - Left Wound Culture - Preliminary Presumptive Staph aureus 08/16/17 10:00 Hand - Left Gram Stain - Preliminary 08/16/17 10:00 Hand - Left Wound Culture - Preliminary 08/16/17 10:00 Hand - Left Anaerobic Culture - Preliminary 08/16/17 10:00 Hand - Left Anaerobic Culture - Preliminary Assessment and Plan (1) Abscess of hand including fingers Narrative/Plan: 42-year-old male presents to hospital with worsening pain to his left hand. The presentation evidence of significant abscess of the fifth finger left hand. Has been seen by orthopedics nurse plan for incision and drainage soon. Pain control seems to be adequate at times. Manipulation of the hand cause severe pain. Dressing with opticel is applied and elevation of the hand is suggested. Opticell also placed of the abscess on of the right arm. Antimicrobial therapy with vancomycin is initiated cefazolin is also added until we have further culture results but does have a known history of MRSA in the past. Information about MRSA infection is given. We discussed several maneuvers once he is home to help prevent further abscess, this includes maneuvers such as a bleach bath he's not done up till now. Multivitamin with zinc is added to help his nutritional status. His albumin level that was good. Patient's been taken the operating room and the abscesses have been incised and drained. The significant pain at the site he's improving, but not nearly resolved. Surgical notes are reviewed without evidence of penetration into the tendon or joint structures at this time. Consequently as he improves will hopefully be able to transition him to oral antimicrobial therapy for his treatment at home. Patient is receiving multiple modalities for pain control with only modest control. Suggest elevation and cold packs. He is anxious for discharge to home, but due to his severe pain. Understands his current situation. He has greater than a pack per day smoker and a patch is in place but is still anxious. Status: Acute (2) MRSA infection Status: Acute (3) Smoker Status: Acute
--- NOTE | 2017-08-18 09:22 | P.PN ---
Subjective Progress Note Date: 08/18/17 Principal diagnosis: Abscess left hand. This is a 42-year-old gentleman admitted through the emergency department on 02/2017. He has multiple pustules the about his upper extremities. He has a purulent abscess to the dorsum of his left hand about the base of the fifth finger. He is status post surgical I&D of the left hand and right forearm. No abscess was found in the forearm wounds. The patient reports moderate pain to the left hand. No other new concerns or complaints today. Dr. Beltran is managing his wound care and antibiotics. Objective - Vital Signs Vital signs: Vital Signs Temp 97.8 F 08/18/17 07:00 Pulse 71 08/18/17 07:00 Resp 18 08/18/17 07:00 BP 148/88 08/18/17 07:00 Pulse Ox 97 08/18/17 07:00 Intake & Output 08/17/17 08/18/17 08/18/17 18:59 06:59 18:59 Intake Total 400 1100 Balance 400 1100 Intake: Oral 400 1100 Other: Voiding Method Toilet # Voids 2 2 # Bowel Movements 0 - Exam This is a 42-year-old male in no acute distress. He is alert and oriented 3. Postoperative dressing in place. There is small amount of drainage noted on the dressing. He has fairly good finger motion without difficulty. Dressings to the right forearm are intact. Neurovascular status the upper extremities is intact. - Labs CBC & Chem 7: 08/14/17 14:40 08/17/17 07:49 Labs: Microbiology - Last 24 Hours (Table) 08/14/17 14:40 Blood Culture - Preliminary Blood No Growth after 72 hours 08/16/17 10:00 Gram Stain - Preliminary Hand - Left Wound Culture - Preliminary Presumptive Staph aureus Assessment and Plan (1) Abscess of hand including fingers Status: Acute (2) Abscess and cellulitis Status: Acute Plan: The clinical findings are discussed with the patient. Continue IV antibiotics. Dr. Beltran is managing his wound care and packing changes. We will continue to follow.
[2017-08-18] MEDS: MULTIVITAMINS, THERA 1 EACH TAB PO SCH (11:17)
[2017-08-18] MEDS: NICOTINE 21MG/24HR PATCH TRANSDERM SCH (11:17)
[2017-08-18] MEDS: HYDROcodone/APAP 10-325MG 1 EACH TAB PO PRN (14:45)
[2017-08-18] MEDS ORDERED: BISACODYL 10 MG SUPP RECTAL STA (15:48)
[2017-08-18] MEDS: LACTATED RINGERS 1,000 ML IV SCH (16:35)
[2017-08-19] MEDS: VANCOMYCIN 1,500 MG in SODIUM CHLORIDE 0.9% 250 ML IVPB SCH ×2 (02:49→09:49)
[2017-08-19] MEDS: KETOROLAC 30 MG/ML 1 ML VIAL IVP SCH ×3 (02:57→11:33)
[2017-08-19] MEDS: HYDROcodone/APAP 10-325MG 1 EACH TAB PO PRN ×2 (08:16→16:31)
[2017-08-19] MEDS: POLYETHYLENE GLYCOL 3350 17 GM POWD.PACK PO SCH (08:17)
--- NOTE | 2017-08-19 11:10 | P.PN ---
Subjective Progress Note Date: 08/19/17 Principal diagnosis: Abscess left hand. This is a 42-year-old gentleman admitted through the emergency department on 02/2017. He has multiple pustules the about his upper extremities. He has a purulent abscess to the dorsum of his left hand about the base of the fifth finger. He is status post surgical I&D of the left hand and right forearm. No abscess was found in the forearm wounds. The patient reports moderate pain to the left hand. No other new concerns or complaints today. Dr. Beltran is managing his wound care and antibiotics. Objective - Vital Signs Vital signs: Vital Signs Temp 98.0 F 08/19/17 07:00 Pulse 76 08/19/17 07:00 Resp 18 08/19/17 07:00 BP 133/89 08/19/17 07:00 Pulse Ox 93 L 08/19/17 07:00 Intake & Output 08/18/17 08/19/17 08/19/17 18:59 06:59 18:59 Intake Total 1040 Balance 1040 Intake: Oral 1040 Other: # Voids 3 1 # Bowel Movements 1 - Exam This is a 42-year-old male in no acute distress. He is alert and oriented 3. Postoperative dressing in place. There is small amount of drainage noted on the dressing. Dressing is removed. The swelling is significantly improved to the fifth finger. Wound edges look clean. The Aquasol silver packing is changed. He has fairly good finger motion without difficulty. Dressings to the right forearm are intact. Neurovascular status the upper extremities is intact. - Labs CBC & Chem 7: 08/14/17 14:40 08/17/17 07:49 Labs: Microbiology - Last 24 Hours (Table) 08/14/17 14:40 Blood Culture - Preliminary Blood No Growth after 96 hours 08/16/17 10:00 Anaerobic Culture - Preliminary Hand - Left 08/16/17 10:00 Anaerobic Culture - Preliminary Hand - Left 08/16/17 10:00 Gram Stain - Final Hand - Left Wound Culture - Final Methicillin resist S. aureus 08/16/17 10:00 Gram Stain - Final Hand - Left Wound Culture - Final Methicillin resist S. aureus Assessment and Plan (1) Abscess of hand including fingers Status: Acute (2) Abscess and cellulitis Status: Acute Plan: The clinical findings are discussed with the patient. He may be discharged from an orthopedic standpoint. Dr. Beltran is managing his antibiotics, wound care and packing changes.
[2017-08-19] MEDS: MULTIVITAMINS, THERA 1 EACH TAB PO SCH (11:35)
[2017-08-19 15:16] VITALS: BP 125/70; PULSE 67; TEMP 97.4
[2017-08-19 15:59] VITALS: RESP 18
--- NOTE | 2017-08-19 16:00 | P.DS ---
Providers Date of admission: 08/14/17 15:02 Expected date of discharge: 08/19/17 Attending physician: Tino Peterson Consults: 08/14/17 15:03 Consult Physician Urgent Consulting Provider: Mikael Beltran Reason/Comments: multiple abscesses Do you want consulting provider notified?: Yes Primary care physician: Stated None - Discharge Diagnosis(es) (1) Abscess of hand including fingers Current Visit: Yes Status: Acute (2) Abscess and cellulitis Current Visit: No Status: Acute Hospital Course: This is a 42-year-old male who is admitted through the emergency department on 08/14/17 with infection to his left hand. 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 He developed an absces hand. He was admitted for IV antibiotics and surgical debridement. He was taken to surgery on 08/16/17 for incision and drainage with antibiotic irrigation of the left hand as well as 2 wounds to right forearm. The patient did well postoperatively. Antibiotics were managed by Dr Beltran. The patient is discharged home on 08/19/17. Patient Condition at Discharge: Good Plan - Discharge Summary New Discharge Prescriptions: New HYDROcodone/APAP 10-325MG [[place] 10-325] 1 - 2 each PO Q4-6H PRN #60 tab PRN Reason: Pain Sulfamethoxazole/Trimethoprim [Bactrim DS 800-160 mg] 1 each PO TID #42 tablet No Action Ibuprofen [Motrin] 800 mg PO BID PRN PRN Reason: Pain Discharge Medication List Ibuprofen [Motrin] 800 mg PO BID PRN 08/14/17 [History] HYDROcodone/APAP 10-325MG [[place] 10-325] 1 - 2 each PO Q4-6H PRN #60 tab [Rx] Sulfamethoxazole/Trimethoprim [Bactrim DS 800-160 mg] 1 each PO TID #42 tablet 08/19/17 [Rx] Follow up Appointment(s)/Referral(s): None,Stated [Primary Care Provider] - 1-2 days Tino Peterson MD [STAFF PHYSICIAN] - 1 Week Patient Instructions/Handouts: How to Stop Smoking (DC), MRSA (Methicillin Resistant Staphylococcus Aureus) (DC), Cellulitis (DC) Activity/Diet/Wound Care/Special Instructions: Wound care and antibiotics per Dr Beltran.
[2017-08-19] MEDS: LACTATED RINGERS 1,000 ML IV SCH (16:44)
--- NOTE | 2017-08-19 20:43 | P.PN ---
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 Who is a difficulty with boils on his skin in the past. She developed a boil on his left hand. Despite some local care it did not improve. He also noticed one in his right arm there is also been giving him some swelling drainage and pain. The swelling and pain to the left hand became unbearable and he presented to the emergency center and has been admitted. He has been seen by orthopedic surgery and his plans for an incision and drainage of the abscess on the left hand. Infectious diseases consultation for antibiotic therapy. This pleasant 48-year-old gentleman with history of multiple lesions on his skin over time. 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 He believes a low-grade fever but no severe chills or rigors. He's had no recent hospitalizations or interventions. The patient has not been taking the operating room when incision and drainages occurred to his left hand and right forearm. Surgical notes are reviewed. Other than significant pain the patient relates that he is stable today. In general he is feeling somewhat better this severe hand pain is improved. He is tolerating treatment with oral pain medications at this time. Objective - Vital Signs Vital signs: Vital Signs Temp 97.4 F L 08/19/17 15:00 Pulse 67 08/19/17 15:00 Resp 18 08/19/17 15:58 BP 125/70 08/19/17 15:00 Pulse Ox 91 L 08/19/17 15:00 Intake & Output 08/19/17 08/19/17 08/20/17 06:59 18:59 06:59 Other: # Voids 1 1 - Exam Pleasant 42-year-old male who is uncomfortable HEENT: Anicteric conjunctiva are pink and moist nasal mucosa grossly intact without significant lesions, there is no thrush. Dentition is poor for age Neck: The neck is supple without significant lymphadenopathy or thyromegaly. Lungs: Symmetrical air entry is noted, expiratory wheezes are scattered but no bronchial sounds are noted. No dullness or egophony. Heart: Regular rate and rhythm with an audible S1-S2, no S3 no S4. There is no significant murmur click or rub, PMI was nondisplaced. Abdomen: Positive bowel sounds soft and nontender without palpable masses or organomegaly. There was no guarding or rebound. Extremities: The left hand and right forearm dressings are removed, the areas are irrigated with saline. All necrotic material is removed at the time of surgery. There are still intense pain in these areas with manipulation and repacking. There is improvement to the surrounding erythema. There is erythema onto the hand but does not track out of the forearm. There is no epitrochlear or axillary lymphadenopathy. No other abnormal lymph nodes are noted The lower extremities are free from significant edema. The peripheral pulses were 2+ and symmetric. Neuro: Awake alert oriented to person place and time. There are no acute new gross focal sensory motor deficits. - Labs CBC & Chem 7: 08/14/17 14:40 08/17/17 07:49 Labs: Microbiology - Last 24 Hours (Table) 08/14/17 14:40 Blood Culture - Preliminary Blood No Growth after 120 hours Laboratory Results WBC 8.9 k/uL (3.8-10.6) 08/14/17 14:40 RBC 4.87 m/uL (4.30-5.90) 08/14/17 14:40 Hgb 15.6 gm/dL (13.0-17.5) 08/14/17 14:40 Hct 45.0 % (39.0-53.0) 08/14/17 14:40 MCV 92.4 fL (80.0-100.0) 08/14/17 14:40 MCH 32.0 pg (25.0-35.0) 08/14/17 14:40 MCHC 34.6 g/dL (31.0-37.0) 08/14/17 14:40 RDW 12.9 % (11.5-15.5) 08/14/17 14:40 Plt Count 208 k/uL (150-450) 08/14/17 14:40 Neutrophils % 77 % 08/14/17 14:40 Lymphocytes % 13 % 08/14/17 14:40 Monocytes % 6 % 08/14/17 14:40 Eosinophils % 2 % 08/14/17 14:40 Basophils % 0 % 08/14/17 14:40 Neutrophils # 6.8 k/uL (1.3-7.7) 08/14/17 14:40 Lymphocytes # 1.2 k/uL (1.0-4.8) 08/14/17 14:40 Monocytes # 0.5 k/uL (0-1.0) 08/14/17 14:40 Eosinophils # 0.2 k/uL (0-0.7) 08/14/17 14:40 Basophils # 0.0 k/uL (0-0.2) 08/14/17 14:40 PT 10.2 sec (9.0-12.0) 08/14/17 14:40 INR 1.0 (<1.2) 08/14/17 14:40 APTT 26.1 sec (22.0-30.0) 08/14/17 14:40 Sodium 140 mmol/L (137-145) 08/14/17 14:40 Potassium 3.9 mmol/L (3.5-5.1) 08/14/17 14:40 Chloride 106 mmol/L (98-107) 08/14/17 14:40 Carbon Dioxide 25 mmol/L (22-30) 08/14/17 14:40 Anion Gap 9 mmol/L 08/14/17 14:40 BUN 6 mg/dL (9-20) L 08/14/17 14:40 Creatinine 0.73 mg/dL (0.66-1.25) 08/17/17 07:49 Est GFR (MDRD) Af Amer >60 (>60 ml/min/1.73 sqM) 08/17/17 07:49 Est GFR (MDRD) Non-Af >60 (>60 ml/min/1.73 sqM) 08/17/17 07:49 Glucose 86 mg/dL (74-99) 08/14/17 14:40 Plasma Lactic Acid Alexander 1.1 mmol/L (0.7-2.0) 08/17/17 23:46 Calcium 9.4 mg/dL (8.4-10.2) 08/14/17 14:40 Total Bilirubin 0.4 mg/dL (0.2-1.3) 08/14/17 14:40 AST 21 U/L (17-59) 08/14/17 14:40 ALT 29 U/L (21-72) 08/14/17 14:40 Alkaline Phosphatase 68 U/L (38-126) 08/14/17 14:40 Total Protein 6.6 g/dL (6.3-8.2) 08/14/17 14:40 Albumin 3.8 g/dL (3.5-5.0) 08/14/17 14:40 Vancomycin Trough 16.4 ug/mL 08/16/17 07:41 Microbiology 08/14/17 14:40 Blood Blood Culture - Preliminary No Growth after 120 hours 08/16/17 10:00 Hand - Left Anaerobic Culture - Preliminary 08/16/17 10:00 Hand - Left Anaerobic Culture - Preliminary 08/16/17 10:00 Hand - Left Gram Stain - Final 08/16/17 10:00 Hand - Left Wound Culture - Final Methicillin resist S. aureus 08/16/17 10:00 Hand - Left Gram Stain - Final 08/16/17 10:00 Hand - Left Wound Culture - Final Methicillin resist S. aureus Assessment and Plan (1) Abscess of hand including fingers Narrative/Plan: 42-year-old male presents to hospital with worsening pain to his left hand. The presentation evidence of significant abscess of the fifth finger left hand. Has been seen by orthopedics nurse plan for incision and drainage soon. Pain control seems to be adequate at times. Manipulation of the hand cause severe pain. Dressing with opticel is applied and elevation of the hand is suggested. Opticell also placed of the abscess on of the right arm. Antimicrobial therapy with vancomycin is initiated cefazolin is also added until we have further culture results but does have a known history of MRSA in the past. Information about MRSA infection is given. We discussed several maneuvers once he is home to help prevent further abscess, this includes maneuvers such as a bleach bath he's not done up till now. Multivitamin with zinc is added to help his nutritional status. His albumin level that was good. Patient's been taken the operating room and the abscesses have been incised and drained. The significant pain at the site he's improving, but not nearly resolved. Surgical notes are reviewed without evidence of penetration into the tendon or joint structures at this time. Consequently as he improves will hopefully be able to transition him to oral antimicrobial therapy for his treatment at home. Patient is receiving multiple modalities for pain control with only modest control. Suggest elevation and cold packs. Feeling considerably better today. Pain is much better controlled on only oral pain medication. Final cultures come back as MRSA. Trimethoprim sulfamethoxazole double strength one 3 times per day for 10 days is given. If possible and can follow up in the office at that time. Local wound care with the silver alginate dressing is provided. He should changes 3 times a week. Patient relates that he does not have insurance and would not be able to have home care. He will be off work until the hand is improved. Status: Acute (2) MRSA infection Status: Acute (3) Smoker Status: Acute
[2017-08-20] MEDS ORDERED: VANCOMYCIN TROUGH DUE 1 EACH MISC MISCELLANE ONE (09:00)
== END 2017-08-19 16:33 | disposition home or self-care (01) | DRG 580 ==
LOC: EC 13:24 → 4MS4W 15:02
PROVIDERS: ADMIT Orthopaedic Surgery; ATTEND Orthopaedic Surgery
PROC: 0J9G0ZZ Drainage of Right Lower Arm Subcutaneous Tissue and Fascia, Open Approach (ICD-10-PCS; 2017-08-16)
PROC: 0J9K0ZZ Drainage of Left Hand Subcutaneous Tissue and Fascia, Open Approach (ICD-10-PCS; principal; 2017-08-16 09:00)
DX: L02.512 Cutaneous abscess of left hand (principal); L03.113 Cellulitis of right upper limb; L02.413 Cutaneous abscess of right upper limb; L03.012 Cellulitis of left finger; F17.200 Nicotine dependence, unspecified, uncomplicated; R00.0 Tachycardia, unspecified; B95.62 Methicillin resistant Staphylococcus aureus infection as the cause of diseases classified elsewhere; Z79.1 Long term (current) use of non-steroidal anti-inflammatories (NSAID); Z90.49 Acquired absence of other specified parts of digestive tract
CPT/HCPCS: 36415; 80053; 80202; 82565; 83605; 85025; 85610; 85730; 87040; 87070; 87075; 87077; 87186; 87205; 88305; 96365; 96366; 96367; 96375; 96376; 99284

== ENCOUNTER 2018-03-12 15:41 | Emergency (ER) | payer OTHER ==
[2018-03-12 16:14] VITALS: RESP 18; TEMP 98.7
--- NOTE | 2018-03-12 16:32 | ED ---
Lower Extremity Injury HPI - General Chief Complaint: Extremity Injury, Lower Stated Complaint: Knee injury, fell off a truck Time Seen by Provider: 03/12/18 16:23 Source: patient, RN notes reviewed Mode of arrival: ambulatory Limitations: no limitations - History of Present Illness Initial Comments: This is a 43-year-old male who presents to the emergency department with chief complaint of right knee injury. Patient states that last he slipped off the back of his truck and twisted his right knee. He states that he heard and felt a pop. He states that since that time and is becoming more painful to ambulate on his right leg. He reports that that the medial aspect of his right knee is most painful. He states that today while at work he bent down and felt another pop in his right knee. He states that pain felt relieved when this happened. He denies any other injuries or trauma. Denies fever, chills, chest pain, shortness of breath, abdominal pain, nausea or vomiting, constipation or diarrhea, dysuria or hematuria, numbness or tingling, headache or vision changes. - Related Data Home Medications Medication Instructions Recorded Confirmed Ibuprofen [Motrin] 800 mg PO BID PRN 08/14/17 08/14/17 Previous Rx's Medication Instructions Recorded HYDROcodone/APAP 10-325MG [[place] 1 - 2 each PO Q4-6H PRN #60 tab 08/19/17 10-325] Sulfamethoxazole/Trimethoprim 1 each PO TID #42 tablet 08/19/17 [Bactrim DS 800-160 mg] Allergies Allergy/AdvReac Type Severity Reaction Status Date / Time No Known Allergies Allergy Verified 03/12/18 16:14 Review of Systems ROS Statement: Those systems with pertinent positive or pertinent negative responses have been documented in the HPI. ROS Other: All systems not noted in ROS Statement are negative. Past Medical History Past Medical History: No Reported History History of Any Multi-Drug Resistant Organisms: MRSA Date of last positivie culture/infection: 08/16/17 MDRO Source:: hand Past Surgical History: Adenoidectomy, Ear Surgery, Tonsillectomy Past Psychological History: No Psychological Hx Reported Smoking Status: Current every day smoker Past Alcohol Use History: Occasional Past Drug Use History: None Reported General Exam - General Exam Comments Initial Comments: General: Awake and alert, well-developed; in no apparent distress. HEENT: Head atraumatic, normocephalic. Pupils are equal, round and reactive to light. Extraocular movements intact. Oropharynx moist without erythema or exudate. Neck: Supple. Normal ROM. Cardiovascular: Regular rate and rhythm. No murmurs, rubs or gallops. Chest symmetrical. Respiratory: Lungs clear to auscultation bilaterally. No wheezes, rales or rhonchi. Normal respiratory effort with no use of accessory muscles. Musculoskeletal: Normal range of motion of the right knee. Patient states he is most comfortable with me in flexion. No swelling, erythema, contusions or abrasions noted. Tenderness with valgus stress. Sensation is intact. Pedal pulses are 2+ equal and palpable bilaterally. Skin: [place], warm and dry without rashes or lesions. Neurological: Alert and oriented x3. CN II-XII grossly intact. Speech is fluent and answers are appropriate. No focal neuro deficits. Psychiatric: Normal mood and affect. No overt signs of depression or anxiety noted. Limitations: no limitations Course Vital Signs 03/12/18 16:12 Temperature 98.7 F Pulse Rate 98 Respiratory 18 Rate Blood Pressure 114/68 O2 Sat by Pulse 95 Oximetry Procedures - Orthopedic Splinting/Casting Injury #1 Side: right Lower Extremity Injury Location: knee Lower Extremity Immobilizer: knee immobilizer Additional Comments: Tolerated well without complication. Neurovascularly intact. Medical Decision Making - Medical Decision Making This is a 43-year-old male who presented to the emergency department with chief complaint of right knee injury. Patient states that he twisted his right knee last when he fell from the back of his truck. He states that he heard a pop. On physical examination, no swelling or contusions are noted. There is tenderness along the medial joint line and positive valgus stress. X-ray of the right knee revealed no acute abnormalities. A knee immobilizer was placed and patient tolerated well without complication. He is likely suffering from a strain of medial ligament. Patient will be discharged home with referral to orthopedics. Vital signs are stable and he is in no acute distress. He is in agreement with plan and voices understanding. All questions answered. - Radiology Data Radiology results: report reviewed X-ray right knee impression: There is no acute fracture or dislocation. Disposition Clinical Impression: Acute internal derangement of knee Disposition: HOME SELF-CARE Condition: Good Instructions: Knee Sprain (ED) Additional Instructions: Please follow-up with Dr. Peterson, orthopedics within 1-2 days. Please follow up with primary care provider within 1-2 days. Return to emergency department if symptoms should worsen or any concerns arise. Is patient prescribed a controlled substance at d/c from ED?: No Referrals: None,Stated [Primary Care Provider] - 1-2 days Tino Peterson MD [STAFF PHYSICIAN] - 1-2 days Time of Disposition: 17:13
--- NOTE | 2018-03-12 17:00 | XR ---
EXAMINATION TYPE: XR knee complete RT DATE OF EXAM: 03/12/2018 CLINICAL HISTORY: pain TECHNIQUE: Three views of the right knee are obtained. COMPARISON: None. FINDINGS: There is no acute fracture/dislocation. The tri-compartment joint spaces appear within no rmal limits. The overlying soft tissue appears unremarkable. IMPRESSION: There is no acute fracture or dislocation.ICD 10 NO FRACTURE, INITIAL EVALUATION
[2018-03-12 17:31] VITALS: BP 115/70; PULSE 86
== END 2018-03-12 17:31 | disposition home or self-care (01) ==
LOC: EC 15:41
DX: S89.91XA Unspecified injury of right lower leg, initial encounter (principal); F17.200 Nicotine dependence, unspecified, uncomplicated; Z86.14 Personal history of Methicillin resistant Staphylococcus aureus infection; V68.9XXA Unspecified occupant of heavy transport vehicle injured in noncollision transport accident in traffic accident, initial encounter; X50.1XXA Overexertion from prolonged static or awkward postures, initial encounter; Y92.89 Other specified places as the place of occurrence of the external cause
CPT/HCPCS: 99283; 73562; L1830

== ENCOUNTER 2020-07-31 10:13 | Emergency (ER) | payer OTHER ==
[2020-07-31 10:21] VITALS: BP 122/83; PULSE 74; RESP 18; TEMP 97.5
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
== END 2020-07-31 11:32 | disposition home or self-care (01) ==
LOC: EC 10:13
DX: L03.116 Cellulitis of left lower limb (principal); F17.200 Nicotine dependence, unspecified, uncomplicated; Z86.14 Personal history of Methicillin resistant Staphylococcus aureus infection
CPT/HCPCS: 99283